=== PATIENT | female | born 1995 | race Caucasian/White ===

== ENCOUNTER 2023-01-11 02:08 | Inpatient (IN) | payer OTHER ==
[~2023-01-11 02:08] MED LIST: Ropivacaine 0.2% PF 2 MG/ML 20 ML SDV ONE
[2023-01-11] MEDS ORDERED: Ondansetron 4 MG/2 ML SDV IVPUSH PRN (02:29)
[2023-01-11] MEDS ORDERED: Lidocaine 1% 50 ML MDV INJECT PRN (02:29)
[2023-01-11] MEDS ORDERED: Acetaminophen 325 MG Tab PO PRN ×2 (02:29→07:24)
[2023-01-11] MEDS ORDERED: Nalbuphine 10 MG/0.5 ML Syringe IVPUSH PRN (02:29)
[2023-01-11] MEDS ORDERED: Oxytocin/Lactated Ringers 10 UNIT/1,000 ML BAG IV SCH ×2 (02:30)
[2023-01-11] MEDS: Lactated Ringers 1,000 ML IV SCH ×2 (02:51→03:21)
[2023-01-11 02:53] LABS: HEMATOCRIT 40.5 % (34.1-44.9); HEMOGLOBIN 13.5 gm/dl (11.2-15.7); MEAN CORPUSCULAR HEMOGLOBIN 30.6 pg (25.6-32.2); MEAN CORPUSCULAR HGB CONC 33.3 g/dl (32.2-35.5); MEAN CORPUSCULAR VOLUME 91.8 fl (79.4-94.8); PLATELET COUNT,PLT 155 K/mm3 (182-369); RED BLOOD CELL COUNT 4.41 M/mm3 (3.98-5.22); WHITE BLOOD CELL COUNT,WBC 11.88 K/mm3 (3.98-10.04)
[2023-01-11] MEDS ORDERED: Bupivacaine/fentaNYL/NS 100 ML Bag EPIDUR PRN (03:16)
[2023-01-11] MEDS ORDERED: ePHEDrine 50 MG/ML SDV IVPUSH PRN (03:16)
[2023-01-11] MEDS ORDERED: diphenhydrAMINE 50 MG/ML SDV IVPUSH PRN (03:16)
[2023-01-11] MEDS ORDERED: fentaNYL 100 MCG/2 ML SDV EPIDUR PRN (03:16)
[2023-01-11] MEDS ORDERED: Witch Hazel Medicated Pads 40/Jar TOP PRN (07:24)
[2023-01-11] MEDS ORDERED: Docusate Sodium 100 MG Cap PO PRN (07:24)
[2023-01-11] MEDS ORDERED: Benzocaine/Menthol 20%-0.5% Spray 78 GM Cannister TOP PRN (07:24)
[2023-01-11] MEDS: Ibuprofen 600 MG Tab PO PRN ×2 (08:41→21:25)
[2023-01-11] MEDS: FLUoxetine 20 MG Cap PO SCH (08:49)
[2023-01-12] MEDS: Ibuprofen 600 MG Tab PO PRN (05:00)
[2023-01-12] MEDS: FLUoxetine 20 MG Cap PO SCH (10:28)
[2023-01-13] MEDS ORDERED: FLUoxetine 20 MG Cap PO SCH (09:00)
== END 2023-01-13 10:43 | disposition home or self-care (01) | DRG 807 ==
LOC: JD.OBCHECK 02:08 → JD.OB 02:16 → JD.OBCHECK 02:28 → JD.OB 02:29 → OBSVTOIN 05:42 → JD.MS 05:43 → JD.OB 13:03
PROVIDERS: ADMIT Obstetrics & Gynecology; ATTEND Obstetrics & Gynecology
PROC: 10E0XZZ Delivery of Products of Conception, External Approach (ICD-10-PCS; principal; 2023-01-11)
PROC: 3E0R3BZ Introduction of Anesthetic Agent into Spinal Canal, Percutaneous Approach (ICD-10-PCS; 2023-01-11)
PROC: 00HU33Z Insertion of Infusion Device into Spinal Canal, Percutaneous Approach (ICD-10-PCS; 2023-01-11)
DX: O99.344 Other mental disorders complicating childbirth (principal); Z37.0 Single live birth; F41.9 Anxiety disorder, unspecified; F32.A Depression, unspecified; O69.81X0 Labor and delivery complicated by cord around neck, without compression, not applicable or unspecified; Z88.0 Allergy status to penicillin
CPT/HCPCS: 36415; 51702; 59025; 59409; 85027; 86592; 86850; 86900; 86901; A9270-GY; J2590; J2795; J3490; J7120